=== PATIENT | male | born 1985 | race Caucasian/White ===

== ENCOUNTER 2023-08-07 12:25 | Emergency (ER) | payer BC ==
[~2023-08-07] VITALS: Ht 188 cm; Wt 90.0 kg
[~2023-08-07 12:25] MED LIST: CYCL-1 PO
[2023-08-07] MEDS ORDERED: HYDROcodone/acetaminophen 5mg/325mg tablet PO ONE (14:15)
[2023-08-07] MEDS ORDERED: NAPR-56 PO (14:24)
[2023-08-07 14:36] VITALS: BP 116/74; PULSE 97; RESP 18; TEMP 98.4; O2SAT 99
--- NOTE | 2023-08-07 15:02 | NUR ---
I have reviewed and agree with all interventions, assessments performed and documented by Arthur LEO LVN.
== END 2023-08-07 14:40 | disposition home or self-care (01) ==
LOC: ER 12:26
DX: S42.002A Fracture of unspecified part of left clavicle, initial encounter for closed fracture (principal); W18.39XA Other fall on same level, initial encounter; Y93.89 Activity, other specified; Y92.89 Other specified places as the place of occurrence of the external cause; Y99.8 Other external cause status
CPT/HCPCS: 73000; 99283